=== PATIENT | male | born 1960 | race Caucasian/White ===

== ENCOUNTER 2016-11-26 15:08 | Emergency (ER) | payer OTHER ==
[~2016-11-26] VITALS: Ht 188 cm; Wt 98.4 kg
[2016-11-26] MEDS ORDERED: BLOOD PRESSURE PO (15:28)
[2016-11-26] MEDS ORDERED: NORCO 5/3251 TABLET PO (17:08)
[2016-11-26 17:28] VITALS: BP 117/62
== END 2016-11-26 17:31 | disposition home or self-care (01) ==
LOC: EME 15:08
DX: S61.213A Laceration without foreign body of left middle finger without damage to nail, initial encounter (principal); W31.89XA Contact with other specified machinery, initial encounter; Z23 Encounter for immunization; F17.200 Nicotine dependence, unspecified, uncomplicated
CPT/HCPCS: 73130; 99281; 99283; S0020